=== PATIENT | male | born 1970 | race Caucasian/White ===

== ENCOUNTER 2016-12-27 18:16 | Emergency (ER) | payer OTHER ==
--- NOTE | 2016-12-27 18:20 | EDPHY ---
H & P HPI/ROS: CHIEF COMPLAINT: Right wrist pain and swelling at work HISTORY OF PRESENT ILLNESS: The patient is a right-handed 46 y/o male complaining of right wrist pain and swelling that has been worsening today. He was at [employer] yesterday and noticed right wrist pain after participating in strenuous physical activity that involved repetitive arm/hand movements. He has had increasing soreness throughout the day today. 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 He did ice his wrist today, but has not taken any pain relief medication. Denies fever, weakness, paresthesias or other pertinent symptoms. Previous right scaphoid pinning. REVIEW OF SYSTEMS: A ten point review of systems was performed and is negative with the exception of the items mentioned in the HPI. 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 Vital signs reviewed. BP 141/87. Focused exam performed. Respiratory: Lungs are clear to auscultation; no wheezes, rales, or rhonchi. Cardiovascular: Regular rate and rhythm; no murmur, rub, or gallop. Skin: Warm and dry, no rashes on exposed skin, normal color. Extremities: Mild swelling anterior aspect right wrist. No skin redness or warmth. No lesions RUE. FAROM right wrist but pain with inversion. 5/5 flexion/extension right digits with testing at MCP, PIP, DIP. Sensation intact to light touch over all five right digits and RUE. No ligamentous laxity right thumb. 5/5 right biceps and triceps. Neurological: Alert and oriented. Moving all four extremities easily and equally. See extremity exam. Pulses: 2+ right radial pulse. Psychiatric: Normal affect. Constitutional: Initial Vital Signs Temperature (C) 36.8 C 12/27/16 18:19 Heart Rate 81 12/27/16 18:19 Respiratory Rate 20 12/27/16 18:19 Blood Pressure 141/87 H 12/27/16 18:19 O2 Sat (%) 98 12/27/16 18:19 O2 Delivery Mode Room Air Allergies/Adverse Reactions: No Known Allergies Allergy (Unverified 12/27/16 18:19) Home Medications: Medication Instructions Recorded NK [No Known Home Meds] 12/27/16 Medical Decision Making - Diagnostics Imaging: I viewed and interpreted images myself ED Course/Re-evaluation: The patient is a 46 y/o male presenting with right wrist pain. He has been using his RUE to perform repetitive movements (with fire hose). 600mg PO Ibuprofen administered. 1849: Reviewed right wrist x-ray--no fracture or dislocation. Radiology report reviewed. Reassessed patient and discussed imaging findings. I suspect tendinitis or a repetitive use injury such as carpal tunnel syndrome--no sensory findings to support diagnosis of carpal tunnel but this is certainly a possibility. Recommend that he wear a thumb spica splint as needed for comfort. Also recommend regular NSAID use and icing. At this point in time I do not think that he needs further testing for systemic conditions that can result in CTS, such as diabetes or rheumatoid arthritis. I have referred him to a Workman's Comp follow up. Return precautions provided; patient is comfortable with this plan. - Data Points Medications Given: Discontinued Medications Ibuprofen (Motrin) 600 mg PO EDNOW ONE Stop: 12/27/16 18:29 Last Admin: 12/27/16 18:42 Dose: 600 mg Departure - Departure Disposition: Home, Routine, Self-Care Clinical Impression: Tendinitis of right wrist Condition: Good Instructions: Splint Care (ED), Tendinitis (ED) Additional Instructions: Adult Pain Control: We recommend Acetaminophen (Tylenol) and Ibuprofen (Motrin,Advil) for pain and fever control. When pain is severe, both drugs can be used at the same time, but at different intervals. Please note the time differences. Your dose is: Acetaminophen[650mg every 4 to 6 hours Ibuprofen 400mg every 6 hours with food Note: No more than 3000mg of Acetaminophen should be taken in 24 hours (for an adult). Wear splint as needed for comfort. Follow up with Workman's Comp within the next week. Return to the emergency department for worsening pain, swelling, numbness, weakness or other concerns. Referrals: Work Comp Referral [facility] [place] [Outside] - As per Instructions Report Scribed for: Eufemia Lind Report Scribed by: Sofia Leon Date of Report: 12/27/16 Time of Report: 18:20 Physician Review and Approval Statement: 12/27/16 18:20 Portions of this note were transcribed by the medical psychotherapist. I, Dr. Eufemia Lind, personally performed the history, physical exam, and medical decision- making; and confirmed the accuracy of the information in the transcribed note.
[2016-12-27 18:21] VITALS: BP 141/87; PULSE 81; RESP 20; TEMP 98.2; O2SAT 98
[2016-12-27] MEDS ORDERED: IBUPROFEN 600 MG TAB PO ONE (18:28)
== END 2016-12-27 18:57 | disposition home or self-care (01) ==
DX: M77.8 Other enthesopathies, not elsewhere classified (principal)

== ENCOUNTER 2017-01-09 23:23 | Emergency (ER) | payer OTHER ==
[2017-01-09 23:29] VITALS: BP 136/84; PULSE 82; RESP 16; TEMP 97.9; O2SAT 94
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
== END 2017-01-10 00:02 | disposition home or self-care (01) ==
DX: Z77.21 Contact with and (suspected) exposure to potentially hazardous body fluids (principal)